=== PATIENT | female | born 1945 | race Asian ===

== ENCOUNTER 2018-04-03 13:31 | Emergency (ER) | payer OTHER ==
[2018-04-03 14:06] VITALS: BP 178/74; PULSE 78; TEMP 98; BMI 30.2
--- NOTE | 2018-04-03 14:38 | PDOC ---
History of Present Illness - General Chief Complaint: Injury Stated Complaint: FALL Time Seen by Provider: 04/03/18 14:03 History Source: Patient, Family Exam Limitations: No Limitations - History of Present Illness Initial Comments: 04/03/18 14:38 Patient slipped and fell in bathtub 2 days ago landing on her left hip and striking the right rib cage on edge of tub. Was seen by her doctor yesterday who wanted her to obtain x-rays and wrote prescriptions for outpatient studies but patient has persistent or worsening pain. states is difficult to take a deep breath due to the pain in her chest wall but does not have a cough or any shortness of breath. Denies fever, denies any dysuria or bleeding in urine, Occurred: reports: other (2 days ago) Severity: reports: moderate Method of Injury: Yes: direct blow, fall Modifying Factors: improves with: None Loss of Consciousness: no loss of consciousness Associated Symptoms (Fall): denies symptoms Past History - Travel Traveled outside of the country in the last 30 days: No Close contact w/someone who was outside of country & ill: No - Past Medical History Allergies/Adverse Reactions: Allergies Allergy/AdvReac Type Severity Reaction Status Date / Time Penicillins Allergy Severe Difficulty Verified 04/03/18 14:00 Breathing Home Medications: Ambulatory Orders Acetaminophen W/ Codeine #3 [Tylenol # 3] 1 combo PO Q4H PRN #10 tablet MDD 4 Insulin Lispro [Humalog] 100 unit SQ ASDIR 04/03/18 Nateglinide [Starlix (Nf)] 60 mg PO TID 04/03/18 Oxycodone HCl/Acetaminophen [Percocet 5-325 mg Tablet] 1 - 2 tab PO Q4H Cancer: Yes (GIST) COPD: No Diabetes: Yes HTN: Yes - Surgical History Abdominal Surgery: Yes (abd tumor removed) - Immunization History Immunization Up to Date: Yes - Suicide/Smoking/Psychosocial Hx Smoking History: Never smoked Hx Alcohol Use: No Drug/Substance Use Hx: No Review of Systems - Review of Systems Able to Perform ROS?: Yes Is the patient limited Bengali proficient: Yes Constitutional: Yes: Symptoms Reported, See HPI HEENTM: Yes: See HPI. No: Symptoms Reported Respiratory: Yes: Symptoms reported, See HPI. No: Cough, Orthopnea, Shortness of Breath Musculoskeletal: Yes: Symptoms Reported, See HPI, Joint Pain (left hip / pelvis) All Other Systems: Reviewed and Negative *Physical Exam - Vital Signs Last Vital Signs Temp Pulse Resp BP Pulse Ox 98.0 F 78 18 178/74 H 98 04/03/18 14:00 04/03/18 14:00 04/03/18 14:00 04/03/18 14:00 04/03/18 14:00 - Physical Exam General Appearance: Yes: Nourished, Appropriately Dressed, Apparent Distress, Mild Distress HEENT: positive: MINGO, Normal ENT Inspection, Normal Voice, TMs Normal, Pharynx Normal Neck: positive: Supple. negative: Tender, Tender lateral, Tender midline Respiratory/Chest: positive: Chest Tender (tenderness along the rib 11/18/2009 mid clavicular to mid axillary line on right side, no crepitus or step-offs, no obvious bruising or swelling noted.), Lungs Clear Gastrointestinal/Abdominal: positive: Soft. negative: Tender Musculoskeletal: positive: Normal Inspection. negative: Decreased Range of Motion (able ot supinate and forward flex with some reproduced pain to ), Vertebral Tenderness Extremity: positive: Normal Capillary Refill, Other (pelvis is stable / ambulatory). negative: Normal Range of Motion, Swelling Integumentary: positive: Normal Color, Pale Neurologic: positive: dialysis nurse II-XII NML intact, Fully Oriented, Alert, Normal Mood/ Affect, Normal Response, Motor Strength 5/5 Moderate Sedation - Procedure Monitoring Vital Signs: Procedure Monitoring Vital Signs Temperature 98.0 F 04/03/18 14:00 Pulse Rate 78 04/03/18 14:00 Respiratory Rate 18 04/03/18 14:00 Blood Pressure 178/74 H 04/03/18 14:00 O2 Sat by Pulse Oximetry (%) 98 04/03/18 14:00 Progress Note - Progress Note Progress Note: Status post fall with multiple contusions. X-rays negative for fractures or dislocations although possibility for a right rib 8 or 9. Will provide T#3 as Percocet too strong for patient. Will F/U with [facility]/ PMD *DC/Admit/Observation/Transfer Diagnosis at time of Disposition: Contusion Qualifiers: Encounter type: initial encounter Contusion area: thoracic wall Contusion of thoracic wall detail: front wall of thorax Laterality: right Qualified Code(s): S20.211A - Contusion of right front wall of thorax, initial encounter - Discharge Dispostion Disposition: HOME Condition at time of disposition: Stable Decision to Admit order: No - Referrals Referrals: Chava Bell MD [Primary Care Provider] - Navin Sanches MD [Staff Physician] - - Patient Instructions Printed Discharge Instructions: DI for Contusion Additional Instructions: Rest, ice to area on and off for 15 minutes 4-6 times a day Avoid heavy lifting or exercise until pain and swelling is resolved or until further directed Keep area highly elevated to reduce swelling Use splints/Norris wrap as directed Followup with orthopedist in one to 2 days if not improving, if significantly improved may wait one week for followup with orthopedist May use ibuprofen 2-200 mg tablets every 6 hours as needed for pain - Post Discharge Activity Forms/Work/School Notes: Back to Work
[2018-04-03] MEDS ORDERED: ACETAMINOPHEN 500 MG TABLET (FP) ONE (14:59)
== END 2018-04-03 15:53 | disposition home or self-care (01) ==
LOC: JERFT 13:31
DX: S20.211A Contusion of right front wall of thorax, initial encounter (principal); W18.2XXA Fall in (into) shower or empty bathtub, initial encounter; Y93.E1 Activity, personal bathing and showering; Y92.012 Bathroom of single-family (private) house as the place of occurrence of the external cause; Y99.8 Other external cause status
CPT/HCPCS: 71101-TC-RT-FY; 73523-TC-FY; 99281-25

== ENCOUNTER 2021-10-29 04:35 | Day surgery (SDC) | payer OTHER ==
[2021-10-27 13:57] VITALS: BMI 30.2
[2021-10-29] MEDS ORDERED: MIDAZOLAM HCL 2 MG/2 ML SINGLE DOSE VIAL ONE (10:22)
[2021-10-29] MEDS ORDERED: MIDAZOLAM HCL 2 MG/2 ML SINGLE DOSE VIAL IVPUSH ONE ×2 (10:55→11:23)
[2021-10-29] MEDS ORDERED: SODIUM CHLORIDE 500 ML IV ONE (10:55)
[2021-10-29] MEDS ORDERED: ONDANSETRON 4 MG/2 ML VIAL ONE (11:45)
[2021-10-29] MEDS ORDERED: ONDANSETRON 4 MG/2 ML VIAL IVPUSH ONE (11:48)
[2021-10-29] MEDS ORDERED: ACETAMINOPHEN INJECTION 100 ML IVPB ONE (12:12)
[2021-10-29] MEDS ORDERED: ACETAMINOPHEN 1000 MG/100 ML BAG IVPB ONE (12:15)
[2021-10-29 15:04] VITALS: PULSE 64
[2021-10-29 15:08] VITALS: BP 137/52; TEMP 97.8
== END 2021-10-29 14:45 | disposition home or self-care (01) ==
LOC: JRADIR 04:35
PROVIDERS: ATTEND Obstetrics & Gynecology Gynecologic Oncology
PROC: BW2GZZZ Computerized Tomography (CT Scan) of Pelvic Region (ICD-10-PCS; principal; 2021-10-29)
PROC: 0JB83ZX Excision of Abdomen Subcutaneous Tissue and Fascia, Percutaneous Approach, Diagnostic (ICD-10-PCS; 2021-10-29)
DX: C49.A0 Gastrointestinal stromal tumor, unspecified site (principal)
CPT/HCPCS: 36415; 49180; 77012-TC; 85025; 85610; 88305-TC; 88341-TC; 88342-TC; C9803-CS; U0003; U0005

== ENCOUNTER 2022-04-02 10:43 | Inpatient (IN) | payer OTHER ==
[2022-04-02 13:15] LABS: BASO % 1.4 % (0-2.0); EOS % 4.6 % (0-4.5); HEMATOCRIT 23.4 % (32.4-45.2); HEMOGLOBIN 7.5 GM/dL (10.7-15.3); LYMPH % 7.8 % (8-40); MCH 29.5 pg (25.7-33.7); MCHC 32.2 g/dl (32.0-36.0); MEAN CELL VOLUME 91.7 fl (80-96); MEAN PLT VOLUME 7.2 fl (7.5-11.1); MONO % 9.2 % (3.8-10.2); PLATELET COUNT 208 10^3/uL (134-434); RBC 2.55 M/mm3 (3.60-5.2); RDW 15.3 % (11.6-15.6); WHITE BLOOD COUNT 4.1 K/mm3 (4.0-10.0)
[2022-04-02 13:19] LABS: EPI CELLS 3 /uL (0-25.1); HYALINE CASTS 0 /uL (0-3.1); PH,URINE 5.5 (5.0-8.0); URINE APPEARANCE CLEAR; URINE BACTERIA 4 /uL (0-1359); URINE BILIRUBIN NEGATIVE (NEGATIVE); URINE COLOR YELLOW; URINE GLUCOSE (UA) NEGATIVE (NEGATIVE); URINE KETONE NEGATIVE (NEGATIVE); URINE LEUK ESTERASE NEGATIVE (NEGATIVE); URINE NITRITE NEGATIVE (NEGATIVE); URINE PROTEIN 1+ (NEGATIVE); URINE RBC 6 /uL (0-23.9); URINE UROBILINOGEN 0.2 mg/dL (0.2-1.0); URINE WBC 5 /uL (0-25.8)
[2022-04-02 13:45] LABS: CALCIUM 9.4 mg/dL (8.5-10.1)
[2022-04-02 13:46] LABS: ALBUMIN 3.2 g/dl (3.4-5.0); BLOOD UREA NITROGEN 60.3 mg/dL (7-18)
[2022-04-02 13:47] LABS: MAGNESIUM 2.1 mg/dL (1.8-2.4)
[2022-04-02 13:48] LABS: CREATININE 3.6 mg/dL (0.55-1.3)
[2022-04-02 13:49] LABS: PHOSPHOROUS 3.1 mg/dL (2.5-4.9)
[2022-04-02 13:50] LABS: TOT PROT 6.8 g/dl (6.4-8.2)
[2022-04-02 13:51] LABS: BILIRUBIN,TOTAL 0.8 mg/dL (0.2-1)
[2022-04-02 13:54] LABS: N-TERMINAL BNP 2959.9 pg/ml (5-450)
[2022-04-02 15:34] LABS: BILIRUBIN,DIRECT 0.6 mg/dL (0.0-0.2)
[2022-04-02 17:06] LABS: INR 1.19 (0.83-1.09); PROTHROMBIN TIME (PATIENT) 13.7 SEC (9.7-13.0)
[2022-04-02 17:09] LABS: ACTIVATED PTT 31.6 SECONDS (25.2-36.5)
[2022-04-02 17:26] LABS: CALCIUM 9.4 mg/dL (8.5-10.1)
[2022-04-02 17:27] LABS: BLOOD UREA NITROGEN 58.8 mg/dL (7-18)
[2022-04-02 17:30] LABS: CREATININE 3.6 mg/dL (0.55-1.3)
[2022-04-02 17:31] LABS: TOT PROT 6.6 g/dl (6.4-8.2)
[2022-04-02] MEDS ORDERED: ACETAMINOPHEN 325 MG TABLET (FP) PO ONE (18:50)
[2022-04-02] MEDS ORDERED: PANTOPRAZOLE SOD 40 MG SUSPENSION PACKET PO ONE (18:50)
[2022-04-02] MEDS ORDERED: ACETAMINOPHEN 325 MG TABLET (FP) ONE (21:08)
[2022-04-02] MEDS ORDERED: INSULIN (LEVEMIR) 100 UNITS/ML UNITS SQ SCH (22:00)
[2022-04-03 00:26] VITALS: RESP 18
[2022-04-03 00:47] VITALS: TEMP 98.9
[2022-04-03] MEDS ORDERED: PANTOPRAZOLE 40 MG TABLET PO ONE (04:34)
[2022-04-03] MEDS ORDERED: SPIRONOLACTONE 25 MG TABLET ONE (08:00)
[2022-04-03] MEDS ORDERED: SPIRONOLACTONE 25 MG TABLET PO SCH (10:00)
[2022-04-03] MEDS ORDERED: TORSEMIDE 20 MG TABLET (FP) PO SCH (11:00)
[2022-04-03] MEDS ORDERED: SODIUM BICARBONATE 325 MG TABLET PO SCH (11:15)
[2022-04-03 12:07] VITALS: BP 157/68; PULSE 77; BMI 34.4
[2022-04-03 12:50] LABS: BASO % 1.4 % (0-2.0); EOS % 5.3 % (0-4.5); LYMPH % 8.3 % (8-40); MCH 28.8 pg (25.7-33.7); MCHC 33.3 g/dl (32.0-36.0); MEAN CELL VOLUME 86.5 fl (80-96); MEAN PLT VOLUME 6.5 fl (7.5-11.1); MONO % 11.9 % (3.8-10.2); NEUT % 73.1 % (42.8-82.8); PLATELET COUNT 208 10^3/uL (134-434); RBC 2.77 M/mm3 (3.60-5.2); RDW 19.5 % (11.6-15.6); WHITE BLOOD COUNT 5.6 K/mm3 (4.0-10.0)
[2022-04-03 13:24] LABS: CREATININE 3.6 mg/dL (0.55-1.3)
== END 2022-04-03 15:52 | disposition home or self-care (01) | DRG 683 ==
LOC: JER 10:43 → JERBED 11:57 → J4W 04-03 09:51
PROVIDERS: ADMIT Family Medicine; ATTEND Family Medicine
PROC: 30233N1 Transfusion of Nonautologous Red Blood Cells into Peripheral Vein, Percutaneous Approach (ICD-10-PCS; principal; 2022-04-02)
DX: I12.9 Hypertensive chronic kidney disease with stage 1 through stage 4 chronic kidney disease, or unspecified chronic kidney disease (principal); C49.A0 Gastrointestinal stromal tumor, unspecified site; C78.7 Secondary malignant neoplasm of liver and intrahepatic bile duct; R18.8 Other ascites; N18.9 Chronic kidney disease, unspecified; D63.1 Anemia in chronic kidney disease; E11.9 Type 2 diabetes mellitus without complications
CPT/HCPCS: 0241U-QW; 36415; 36430; 71046-TC-FY; 76775-TC; 80048; 80053; 81003; 82248; 82728; 82962; 83010; 83540; 83550; 83615; 83735; 83880; 84100; 84484; 85025; 85045; 85610; 85730; 86850; 86900; 86901; 86922; 87086; 93005; 93010; 99285-25; P9058

== ENCOUNTER 2022-05-10 09:26 | Inpatient (IN) | payer OTHER ==
[2022-05-10 09:30] VITALS: BMI 33.3
[2022-05-10 12:19] LABS: EOS % 3.8 % (0-4.5); HEMATOCRIT 21.4 % (32.4-45.2); HEMOGLOBIN 7.1 GM/dL (10.7-15.3); LYMPH % 7.1 % (8-40); MCH 29.2 pg (25.7-33.7); MCHC 33.1 g/dl (32.0-36.0); MEAN CELL VOLUME 88.4 fl (80-96); MEAN PLT VOLUME 7.9 fl (7.5-11.1); MONO % 8.8 % (3.8-10.2); NEUT % 79.3 % (42.8-82.8); PLATELET COUNT 271 10^3/uL (134-434); RBC 2.41 M/mm3 (3.60-5.2); RDW 16.8 % (11.6-15.6); WHITE BLOOD COUNT 5.5 K/mm3 (4.0-10.0)
[2022-05-10 12:24] LABS: INR 1.32 (0.83-1.09); PROTHROMBIN TIME (PATIENT) 15.2 SEC (9.7-13.0)
[2022-05-10 12:27] LABS: ACTIVATED PTT 31.7 SECONDS (25.2-36.5)
[2022-05-10 13:12] LABS: CALCIUM 8.7 mg/dL (8.5-10.1)
[2022-05-10 13:13] LABS: BLOOD UREA NITROGEN 89.4 mg/dL (7-18); MAGNESIUM 1.5 mg/dL (1.8-2.4)
[2022-05-10 13:15] LABS: CREATININE 5.6 mg/dL (0.55-1.3); PHOSPHOROUS 4.3 mg/dL (2.5-4.9)
[2022-05-10 13:18] LABS: BILIRUBIN,TOTAL 1.3 mg/dL (0.2-1); TOT PROT 6.7 g/dl (6.4-8.2)
[2022-05-10] MEDS ORDERED: ZOLPIDEM TARTRATE 5 MG TABLET PO PRN (15:07)
[2022-05-10] MEDS ORDERED: ACETAMINOPHEN 325 MG TABLET (FP) PO PRN (21:48)
[2022-05-10] MEDS: INSULIN (LEVEMIR) 100 UNITS/ML UNITS SQ SCH ×2 (21:50→22:20)
[2022-05-11] MEDS ORDERED: INSULIN (NOVOLOG) ASPART 100 UNITS/ML 10ML VIAL ONE (07:39)
[2022-05-11] MEDS ORDERED: INSULIN (LEVEMIR) 100 UNITS/ML UNITS SQ ONE (07:39)
[2022-05-11 09:42] LABS: EPI CELLS 2 /uL (0-25.1); HYALINE CASTS 1 /uL (0-3.1); PH,URINE 5.5 (5.0-8.0); URINE APPEARANCE CLEAR; URINE BACTERIA 5 /uL (0-1359); URINE BILIRUBIN NEGATIVE (NEGATIVE); URINE COLOR YELLOW; URINE GLUCOSE (UA) NEGATIVE (NEGATIVE); URINE KETONE NEGATIVE (NEGATIVE); URINE LEUK ESTERASE NEGATIVE (NEGATIVE); URINE NITRITE NEGATIVE (NEGATIVE); URINE PROTEIN 1+ (NEGATIVE); URINE RBC 4 /uL (0-23.9); URINE UROBILINOGEN 0.2 mg/dL (0.2-1.0); URINE WBC 8 /uL (0-25.8)
[2022-05-11 09:49] LABS: BASO % 1.4 % (0-2.0); EOS % 6.4 % (0-4.5); HEMATOCRIT 22.4 % (32.4-45.2); HEMOGLOBIN 7.5 GM/dL (10.7-15.3); LYMPH % 10.1 % (8-40); MCH 29.6 pg (25.7-33.7); MCHC 33.5 g/dl (32.0-36.0); MEAN CELL VOLUME 88.4 fl (80-96); MEAN PLT VOLUME 7.5 fl (7.5-11.1); MONO % 11.7 % (3.8-10.2); NEUT % 70.4 % (42.8-82.8); PLATELET COUNT 338 10^3/uL (134-434); RBC 2.53 M/mm3 (3.60-5.2); RDW 16.7 % (11.6-15.6); WHITE BLOOD COUNT 6.9 K/mm3 (4.0-10.0)
[2022-05-11] MEDS: SPIRONOLACTONE 25 MG TABLET PO SCH (10:04)
[2022-05-11] MEDS: PANTOPRAZOLE SODIUM 40 MG VIAL IVPUSH SCH (10:05)
[2022-05-11 10:24] LABS: ALBUMIN 2.9 g/dl (3.4-5.0)
[2022-05-11 10:25] LABS: BLOOD UREA NITROGEN 86.8 mg/dL (7-18); CALCIUM 8.9 mg/dL (8.5-10.1); CREATININE 5.4 mg/dL (0.55-1.3)
[2022-05-11 10:26] LABS: BILIRUBIN,TOTAL 1.4 mg/dL (0.2-1); TOT PROT 6.6 g/dl (6.4-8.2)
[2022-05-11] MEDS ORDERED: FUROSEMIDE 100 MG/10 ML INJECTABLE VIAL IVPB ONE (12:10)
[2022-05-11] MEDS ORDERED: MAGNESIUM SULF 50% (8.12 MEQ/2 ML-1 GM VIAL) IVPB ONE (16:32)
[2022-05-11] MEDS: INSULIN (LEVEMIR) 100 UNITS/ML UNITS SQ SCH (21:34)
[2022-05-12 10:23] LABS: BASO % 1.4 % (0-2.0); EOS % 6.1 % (0-4.5); HEMATOCRIT 22.6 % (32.4-45.2); HEMOGLOBIN 7.4 GM/dL (10.7-15.3); LYMPH % 7.4 % (8-40); MCH 29.3 pg (25.7-33.7); MCHC 32.9 g/dl (32.0-36.0); MEAN CELL VOLUME 88.8 fl (80-96); MEAN PLT VOLUME 7.3 fl (7.5-11.1); MONO % 13.1 % (3.8-10.2); PLATELET COUNT 246 10^3/uL (134-434); RBC 2.54 M/mm3 (3.60-5.2); RDW 16.7 % (11.6-15.6); WHITE BLOOD COUNT 5.5 K/mm3 (4.0-10.0)
[2022-05-12] MEDS: SPIRONOLACTONE 25 MG TABLET PO SCH (10:31)
[2022-05-12 11:00] LABS: CALCIUM 9.1 mg/dL (8.5-10.1)
[2022-05-12] MEDS: PANTOPRAZOLE SODIUM 40 MG VIAL IVPUSH SCH (11:00)
[2022-05-12] MEDS ORDERED: FUROSEMIDE 100 MG/10 ML INJECTABLE VIAL IVPB SCH (11:00)
[2022-05-12 11:01] LABS: BLOOD UREA NITROGEN 86.8 mg/dL (7-18)
[2022-05-12] MEDS ORDERED: FUROSEMIDE 40 MG/4 ML INJECTABLE VIAL IVPB SCH (11:02)
[2022-05-12 11:04] LABS: CREATININE 5.2 mg/dL (0.55-1.3)
[2022-05-12] MEDS ORDERED: PROMETHAZINE HCL 25 MG/1 ML VIAL IVPB PRN ×2 (14:07→18:57)
[2022-05-12] MEDS ORDERED: ONDANSETRON 4 MG/2 ML VIAL IVPUSH PRN ×2 (14:07→18:57)
[2022-05-12] MEDS ORDERED: SODIUM CHLORIDE 1,000 ML IV SCH (14:15)
[2022-05-12] MEDS ORDERED: LIDOCAINE HCL 1%, 10 MG/ML (20ML VIAL) ONE (14:37)
[2022-05-12] MEDS ORDERED: HEPARIN NA (PORCINE) 5,000 UNITS/ML 1ML VIAL ONE (14:37)
[2022-05-12] MEDS ORDERED: CLINDAMYCIN 600 MG PREMIX BAG IVPB ONE (17:30)
[2022-05-12] MEDS ORDERED: LIDOCAINE HCL 1%, 10 MG/ML (20ML VIAL) NR ONE (17:36)
[2022-05-12 17:46] LABS: BF WBC & OTHER NUCLEATED CELLS 280 /mm3
[2022-05-12] MEDS ORDERED: ACETAMINOPHEN 325 MG TABLET (FP) PO PRN (18:57)
[2022-05-12] MEDS ORDERED: ZOLPIDEM TARTRATE 5 MG TABLET PO PRN (18:57)
[2022-05-12 19:17] LABS: BODY FLUID MACROPHAGES 52 %; BODY FLUID MESOTHELIAL 10 %; BODY FLUID MONOCYTE 4 %; BODYL FLD EOSINOPHIL 1 %
[2022-05-12] MEDS ORDERED: ONDANSETRON 4 MG/2 ML VIAL ONE (19:33)
[2022-05-12] MEDS ORDERED: ONDANSETRON 4 MG/2 ML VIAL IVPUSH ONE (19:35)
[2022-05-12] MEDS: INSULIN (LEVEMIR) 100 UNITS/ML UNITS SQ SCH (21:44)
[2022-05-12] MEDS: SODIUM CHLORIDE 1,000 ML IV SCH (21:45)
[2022-05-13] MEDS: FUROSEMIDE 40 MG/4 ML INJECTABLE VIAL IVPB SCH (09:54)
[2022-05-13] MEDS: SPIRONOLACTONE 25 MG TABLET PO SCH (09:58)
[2022-05-13] MEDS: PANTOPRAZOLE SODIUM 40 MG VIAL IVPUSH SCH (09:59)
[2022-05-13] MEDS ORDERED: SODIUM CHLORIDE 250 ML IV PRN (10:42)
[2022-05-13 12:11] LABS: EOS % 1.8 % (0-4.5); HEMATOCRIT 22.1 % (32.4-45.2); HEMOGLOBIN 7.3 GM/dL (10.7-15.3); LYMPH % 8.8 % (8-40); MCH 29.2 pg (25.7-33.7); MEAN CELL VOLUME 88.4 fl (80-96); MEAN PLT VOLUME 7.4 fl (7.5-11.1); MONO % 9.1 % (3.8-10.2); NEUT % 79.3 % (42.8-82.8); PLATELET COUNT 267 10^3/uL (134-434); RBC 2.49 M/mm3 (3.60-5.2); RDW 16.9 % (11.6-15.6); WHITE BLOOD COUNT 5.6 K/mm3 (4.0-10.0)
[2022-05-13 12:31] LABS: ALBUMIN 2.6 g/dl (3.4-5.0)
[2022-05-13 12:32] LABS: BLOOD UREA NITROGEN 85.2 mg/dL (7-18); CALCIUM 8.6 mg/dL (8.5-10.1)
[2022-05-13 12:35] LABS: TOT PROT 6.1 g/dl (6.4-8.2)
[2022-05-13 12:36] LABS: BILIRUBIN,TOTAL 1.2 mg/dL (0.2-1)
[2022-05-13 18:03] LABS: CALCIUM 8.1 mg/dL (8.5-10.1)
[2022-05-13 18:04] LABS: ALBUMIN 2.5 g/dl (3.4-5.0); BLOOD UREA NITROGEN 68.1 mg/dL (7-18)
[2022-05-13 18:07] LABS: CREATININE 4.3 mg/dL (0.55-1.3)
[2022-05-13 18:08] LABS: TOT PROT 5.6 g/dl (6.4-8.2)
[2022-05-13] MEDS: SODIUM CHLORIDE 1,000 ML IV SCH (19:53)
[2022-05-13] MEDS: INSULIN (LEVEMIR) 100 UNITS/ML UNITS SQ SCH (21:09)
[2022-05-14 08:52] LABS: BASO % 0.6 % (0-2.0); HEMATOCRIT 20.3 % (32.4-45.2); LYMPH % 11.7 % (8-40); MCH 29.4 pg (25.7-33.7); MCHC 33.6 g/dl (32.0-36.0); MEAN CELL VOLUME 87.7 fl (80-96); MEAN PLT VOLUME 7.2 fl (7.5-11.1); MONO % 15.4 % (3.8-10.2); NEUT % 69.3 % (42.8-82.8); PLATELET COUNT 263 10^3/uL (134-434); RBC 2.31 M/mm3 (3.60-5.2); RDW 16.5 % (11.6-15.6); RETICULOCYTES 4.96 % (0.5-1.5); WHITE BLOOD COUNT 7.5 K/mm3 (4.0-10.0)
[2022-05-14] MEDS: PANTOPRAZOLE SODIUM 40 MG VIAL IVPUSH SCH ×2 (08:53→09:09)
[2022-05-14] MEDS: DEXTROSE 5%-0.45% SALINE 1,000 ML IV SCH (09:00)
[2022-05-14] MEDS: POLYETHYLENE GLYCOL (HEALTHYLAX) 3350 17 GM PACKET PO SCH (09:04)
[2022-05-14] MEDS: FUROSEMIDE 40 MG/4 ML INJECTABLE VIAL IVPB SCH (09:06)
[2022-05-14] MEDS: SPIRONOLACTONE 25 MG TABLET PO SCH (09:06)
[2022-05-14 09:09] LABS: HEMOGLOBIN 6.8 GM/dL (10.7-15.3)
[2022-05-14 09:17] LABS: CALCIUM 8.4 mg/dL (8.5-10.1)
[2022-05-14 09:18] LABS: BLOOD UREA NITROGEN 56.6 mg/dL (7-18)
[2022-05-14] MEDS ORDERED: DEXTROSE 50%-WATER 25 GM/50 ML DISP.SYRIN IVPUSH ONE (12:56)
[2022-05-14 16:08] LABS: BODY FLUID ALBUMIN 1.7 g/dL (Not Estab.)
[2022-05-14] MEDS: INSULIN (LEVEMIR) 100 UNITS/ML UNITS SQ SCH (21:20)
[2022-05-15] MEDS: PANTOPRAZOLE SODIUM 40 MG VIAL IVPUSH SCH (09:46)
[2022-05-15] MEDS: FUROSEMIDE 40 MG/4 ML INJECTABLE VIAL IVPB SCH (09:46)
[2022-05-15] MEDS: POLYETHYLENE GLYCOL (HEALTHYLAX) 3350 17 GM PACKET PO SCH ×2 (09:46→22:48)
[2022-05-15] MEDS: DEXTROSE 5%-0.45% SALINE 1,000 ML IV SCH (09:54)
[2022-05-15 13:02] LABS: BASO % 0.9 % (0-2.0); EOS % 4.4 % (0-4.5); HEMATOCRIT 27.5 % (32.4-45.2); HEMOGLOBIN 9.3 GM/dL (10.7-15.3); LYMPH % 6.2 % (8-40); MCH 30.1 pg (25.7-33.7); MEAN CELL VOLUME 88.5 fl (80-96); MEAN PLT VOLUME 6.9 fl (7.5-11.1); MONO % 12.4 % (3.8-10.2); NEUT % 76.1 % (42.8-82.8); PLATELET COUNT 165 10^3/uL (134-434); RBC 3.11 M/mm3 (3.60-5.2); RDW 15.9 % (11.6-15.6); WHITE BLOOD COUNT 4.7 K/mm3 (4.0-10.0)
[2022-05-15 13:25] LABS: CALCIUM 8.6 mg/dL (8.5-10.1)
[2022-05-15 13:26] LABS: BLOOD UREA NITROGEN 51.7 mg/dL (7-18)
[2022-05-15 13:29] LABS: CREATININE 3.8 mg/dL (0.55-1.3)
[2022-05-15] MEDS ORDERED: SODIUM CHLORIDE 250 ML IV PRN (15:06)
[2022-05-15] MEDS ORDERED: MIDAZOLAM HCL 2 MG/2 ML SINGLE DOSE VIAL ONE (17:12)
[2022-05-15] MEDS ORDERED: PROPOFOL 40 ML ONE (17:12)
[2022-05-15] MEDS ORDERED: ceFAZolin SODIUM 1 GM VIAL IVPB ONE (17:55)
[2022-05-15] MEDS ORDERED: DEXAMETHASONE SOD PHOSPHATE 4 MG/1 ML VIAL ONE (17:59)
[2022-05-15] MEDS ORDERED: ONDANSETRON 4 MG/2 ML VIAL ONE (17:59)
[2022-05-15] MEDS ORDERED: ceFAZolin SODIUM 1 GM VIAL ONE (17:59)
[2022-05-15] MEDS ORDERED: LIDOCAINE HCL 1%, 10 MG/ML (20ML VIAL) NR ONE (18:07)
[2022-05-15] MEDS ORDERED: HEPARIN NA (PORCINE) 5,000 UNITS/ML 1ML VIAL SQ ONE (18:08)
[2022-05-15] MEDS ORDERED: POVIDONE-IODINE OINTMENT 10% - 28.4 GM TUBE ONE (18:51)
[2022-05-15] MEDS ORDERED: DEXTROSE 50%-WATER 25 GM/50 ML DISP.SYRIN IVPUSH ONE (19:14)
[2022-05-15] MEDS ORDERED: DEXTROSE 5%-0.45% SALINE 1,000 ML IV SCH (19:14)
[2022-05-15] MEDS ORDERED: INSULIN (LEVEMIR) 100 UNITS/ML UNITS SQ SCH (22:00)
[2022-05-15] MEDS ORDERED: POLYETHYLENE GLYCOL (HEALTHYLAX) 3350 17 GM PACKET PO SCH ×2 (22:00→23:00)
[2022-05-16] MEDS ORDERED: SODIUM CHLORIDE 250 ML IV PRN (09:31)
[2022-05-16] MEDS ORDERED: EPOETIN ALFA-EPBX 10,000 UNIT/ML VIAL IVPUSH ONE (10:30)
[2022-05-16 10:31] LABS: HEMATOCRIT 26.9 % (32.4-45.2); MCH 29.9 pg (25.7-33.7); MCHC 33.4 g/dl (32.0-36.0); MEAN CELL VOLUME 89.6 fl (80-96); MEAN PLT VOLUME 7.7 fl (7.5-11.1); PLATELET COUNT 167 10^3/uL (134-434); RDW 15.9 % (11.6-15.6); WHITE BLOOD COUNT 6.4 K/mm3 (4.0-10.0)
[2022-05-16 11:08] LABS: CALCIUM 8.6 mg/dL (8.5-10.1)
[2022-05-16 11:09] LABS: BLOOD UREA NITROGEN 59.2 mg/dL (7-18)
[2022-05-16 11:12] LABS: CREATININE 3.8 mg/dL (0.55-1.3)
[2022-05-16 11:19] LABS: ANISOCYTOSIS 0; HELMET CELLS 0; HOWELL-JOLLY BODIES 0; MACROCYTOSIS 0; OVALOCYTE 0; ROULEAU 0; SICKELED CELLS 0; TARGET CELLS 0; TEAR DROP CELLS 0; TOXIC GRANULATION 0
[2022-05-16] MEDS: PANTOPRAZOLE SODIUM 40 MG VIAL IVPUSH SCH (12:58)
[2022-05-16] MEDS: POLYETHYLENE GLYCOL (HEALTHYLAX) 3350 17 GM PACKET PO SCH ×2 (12:59→21:22)
[2022-05-16] MEDS ORDERED: EPOETIN ALFA-EPBX 10,000 UNIT/ML VIAL SQ ONE (15:06)
[2022-05-17] MEDS: ACETAMINOPHEN 325 MG TABLET (FP) PO PRN ×2 (09:31→21:29)
[2022-05-17] MEDS: POLYETHYLENE GLYCOL (HEALTHYLAX) 3350 17 GM PACKET PO SCH ×2 (09:33→21:30)
[2022-05-17] MEDS: PANTOPRAZOLE SODIUM 40 MG VIAL IVPUSH SCH (09:33)
[2022-05-17] MEDS ORDERED: cloNIDine-TTS 0.3 MG /24 HRS PATCH.TDWK TD SCH ×3 (10:00)
[2022-05-17] MEDS ORDERED: TORSEMIDE 20 MG TABLET (FP) PO SCH (12:45)
[2022-05-17 14:24] VITALS: RESP 18
[2022-05-18 07:43] VITALS: TEMP 97.4
[2022-05-18] MEDS ORDERED: SODIUM CHLORIDE 250 ML IV PRN (09:26)
[2022-05-18] MEDS ORDERED: HEPARIN NA (PORCINE) 5,000 UNITS/ML 1ML VIAL IVPUSH ONE (10:00)
[2022-05-18] MEDS ORDERED: EPOETIN ALFA-EPBX 10,000 UNIT/ML VIAL IVPUSH ONE (10:00)
[2022-05-18 11:04] LABS: HEMATOCRIT 24.9 % (32.4-45.2); HEMOGLOBIN 8.4 GM/dL (10.7-15.3); MCH 30.3 pg (25.7-33.7); MCHC 33.6 g/dl (32.0-36.0); MEAN CELL VOLUME 90.3 fl (80-96); PLATELET COUNT 151 10^3/uL (134-434); RBC 2.75 M/mm3 (3.60-5.2); RDW 16.6 % (11.6-15.6); WHITE BLOOD COUNT 6.1 K/mm3 (4.0-10.0)
[2022-05-18 11:18] LABS: ALBUMIN 2.3 g/dl (3.4-5.0); BLOOD UREA NITROGEN 46.5 mg/dL (7-18); CALCIUM 7.9 mg/dL (8.5-10.1)
[2022-05-18 11:21] LABS: CREATININE 3.4 mg/dL (0.55-1.3)
[2022-05-18 11:23] LABS: BILIRUBIN,TOTAL 1.4 mg/dL (0.2-1); TOT PROT 5.4 g/dl (6.4-8.2)
[2022-05-18 12:31] VITALS: BP 120/52; PULSE 74
[2022-05-18] MEDS: POLYETHYLENE GLYCOL (HEALTHYLAX) 3350 17 GM PACKET PO SCH (13:44)
[2022-05-19] MEDS ORDERED: PANTOPRAZOLE 40 MG TABLET PO SCH (10:00)
== END 2022-05-18 15:56 | disposition home or self-care (01) | DRG 673 ==
LOC: JER 09:26 → JERBED 11:40 → J6S 16:01
PROVIDERS: ADMIT Family Medicine; ATTEND Family Medicine
PROC: 05HM33Z Insertion of Infusion Device into Right Internal Jugular Vein, Percutaneous Approach (ICD-10-PCS; 2022-05-12)
PROC: B513ZZA Fluoroscopy of Right Jugular Veins, Guidance (ICD-10-PCS; 2022-05-12)
PROC: 0W9G3ZX Drainage of Peritoneal Cavity, Percutaneous Approach, Diagnostic (ICD-10-PCS; 2022-05-12)
PROC: 5A1D70Z Performance of Urinary Filtration, Intermittent, Less than 6 Hours Per Day (ICD-10-PCS; 2022-05-13)
PROC: 03180ZD Bypass Left Brachial Artery to Upper Arm Vein, Open Approach (ICD-10-PCS; principal; 2022-05-15 15:30)
PROC: 5A1D70Z Performance of Urinary Filtration, Intermittent, Less than 6 Hours Per Day (ICD-10-PCS; 2022-05-16)
PROC: 5A1D70Z Performance of Urinary Filtration, Intermittent, Less than 6 Hours Per Day (ICD-10-PCS; 2022-05-18)
DX: I12.0 Hypertensive chronic kidney disease with stage 5 chronic kidney disease or end stage renal disease (principal); N18.6 End stage renal disease; R18.8 Other ascites; N17.9 Acute kidney failure, unspecified; C49.A9 Gastrointestinal stromal tumor of other sites; C78.6 Secondary malignant neoplasm of retroperitoneum and peritoneum; C78.7 Secondary malignant neoplasm of liver and intrahepatic bile duct; M54.59 Other low back pain; D64.9 Anemia, unspecified; K59.00 Constipation, unspecified; E66.9 Obesity, unspecified; Z68.30 Body mass index [BMI] 30.0-30.9, adult; E87.70 Fluid overload, unspecified; E11.22 Type 2 diabetes mellitus with diabetic chronic kidney disease; Z99.2 Dependence on renal dialysis
CPT/HCPCS: 0241U-QW; 36415; 36430; 71045-TC-FY; 71046-TC-FY; 74176-TC; 76000-TC-FY; 76942-TC; 80048; 80053; 81003; 82042; 82150; 82465; 82728; 82962; 83540; 83550; 83615; 83735; 83986; 84100; 84157; 84478; 84484; 85025; 85027; 85045; 85610; 85730; 86803; 86850; 86900; 86901; 86922; 87070; 87075; 87086; 87102; 87116; 87205; 87206; 87210; 87340; 88108; 88305-TC; 93005; 93010; 93985; 94760; 99285-25; C1750; J1644; P9058; Q5106

== ENCOUNTER 2022-06-29 10:47 | Emergency (ER) | payer OTHER ==
[2022-06-29 11:16] VITALS: BP 134/43; RESP 16; TEMP 97.8; BMI 31.5
[2022-06-29 13:19] LABS: BASO % 0.3 % (0-2.0); EOS % 0.3 % (0-4.5); HEMATOCRIT 33.7 % (32.4-45.2); HEMOGLOBIN 11.2 GM/dL (10.7-15.3); LYMPH % 6.8 % (8-40); MCH 31.9 pg (25.7-33.7); MCHC 33.3 g/dl (32.0-36.0); MEAN CELL VOLUME 95.7 fl (80-96); MEAN PLT VOLUME 7.3 fl (7.5-11.1); MONO % 6.1 % (3.8-10.2); NEUT % 86.5 % (42.8-82.8); PLATELET COUNT 241 10^3/uL (134-434); RBC 3.53 M/mm3 (3.60-5.2); RDW 19.1 % (11.6-15.6); WHITE BLOOD COUNT 8.5 K/mm3 (4.0-10.0)
[2022-06-29 13:26] LABS: INR 1.1 (0.83-1.09); PROTHROMBIN TIME (PATIENT) 12.7 SEC (9.7-13.0)
[2022-06-29 13:29] LABS: ACTIVATED PTT 32.5 SECONDS (25.2-36.5)
[2022-06-29 13:36] LABS: CALCIUM 8.6 mg/dL (8.5-10.1)
[2022-06-29 13:37] LABS: ALBUMIN 2.3 g/dl (3.4-5.0); BLOOD UREA NITROGEN 25.2 mg/dL (7-18)
[2022-06-29 13:40] LABS: CREATININE 3.1 mg/dL (0.55-1.3)
[2022-06-29 13:41] LABS: TOT PROT 6.2 g/dl (6.4-8.2)
[2022-06-29 13:42] LABS: BILIRUBIN,TOTAL 1.2 mg/dL (0.2-1)
[2022-06-29 14:22] VITALS: PULSE 85
== END 2022-06-29 14:23 | disposition home or self-care (01) ==
LOC: JER 10:47
DX: R07.89 Other chest pain (principal)
CPT/HCPCS: 36415; 80053; 83036; 85025; 85610; 85730; 86850; 86900; 86901; 99283-25

== ENCOUNTER → 2022-06-30 | Day surgery (SDC) | payer OTHER ==
[2022-06-30 19:20] LABS: BF WBC & OTHER NUCLEATED CELLS 178 /mm3
[2022-06-30 20:38] LABS: BODY FLUID MACROPHAGES 10 %; BODY FLUID MESOTHELIAL 5 %; BODY FLUID MONOCYTE 22 %
[2022-07-02 16:09] LABS: BODY FLUID ALBUMIN 1.4 g/dL (Not Estab.)
== END | disposition home or self-care (01) ==
LOC: JRADIR 09:29
PROVIDERS: ATTEND Internal Medicine Hematology & Oncology
PROC: 0W9G3ZZ Drainage of Peritoneal Cavity, Percutaneous Approach (ICD-10-PCS; principal; 2022-06-30)
DX: R18.8 Other ascites (principal)
CPT/HCPCS: 36415; 49083; 76942-TC; 82042; 82150; 82465; 82945; 83615; 83986; 84157; 84478; 87070; 87075; 87102; 87116; 87205; 87206; 87210; 88108; 88305-TC

== ENCOUNTER 2022-07-03 10:16 | Inpatient (IN) | payer OTHER ==
[2022-07-03 13:18] LABS: VENOUS BASE EXCESS 1.9 mmol/L (-2-2); VENOUS O2 SATURATION 30.5 % (70-80); VENOUS PCO2 43.3 mmHg (38-52); VENOUS PH 7.41 (7.310-7.410)
[2022-07-03 13:19] LABS: BASO % 0.3 % (0-2.0); EOS % 0.3 % (0-4.5); HEMATOCRIT 35.4 % (32.4-45.2); HEMOGLOBIN 11.7 GM/dL (10.7-15.3); MCH 31.5 pg (25.7-33.7); MCHC 33.2 g/dl (32.0-36.0); MEAN CELL VOLUME 94.9 fl (80-96); MEAN PLT VOLUME 7.7 fl (7.5-11.1); MONO % 6.8 % (3.8-10.2); NEUT % 85.6 % (42.8-82.8); PLATELET COUNT 175 10^3/uL (134-434); RBC 3.73 M/mm3 (3.60-5.2); RDW 18.6 % (11.6-15.6); WHITE BLOOD COUNT 7.3 K/mm3 (4.0-10.0)
[2022-07-03 13:27] LABS: INR 1.14 (0.83-1.09); PROTHROMBIN TIME (PATIENT) 13.2 SEC (9.7-13.0)
[2022-07-03 13:29] LABS: ACTIVATED PTT 31.6 SECONDS (25.2-36.5)
[2022-07-03 13:44] LABS: ALBUMIN 2.2 g/dl (3.4-5.0); BLOOD UREA NITROGEN 23.5 mg/dL (7-18); CALCIUM 8.6 mg/dL (8.5-10.1)
[2022-07-03 13:49] LABS: TOT PROT 6.3 g/dl (6.4-8.2)
[2022-07-03 13:50] LABS: BILIRUBIN,TOTAL 1.2 mg/dL (0.2-1)
[2022-07-03 13:53] LABS: N-TERMINAL BNP 4933.4 pg/ml (5-450)
[2022-07-03] MEDS ORDERED: ALBUMIN HUMAN 25% 12.5 GM/50 ML VIAL IV SCH ×2 (14:30)
[2022-07-03] MEDS: ALBUMIN HUMAN 25% 12.5 GM/50 ML VIAL IV SCH ×2 (15:45→21:14)
[2022-07-03] MEDS ORDERED: valACYclovir HCL 1000 MG TABLET PO ONE (19:36)
[2022-07-03] MEDS ORDERED: valACYclovir HCL 500 MG TABLET (FP) PO ONE (21:45)
[2022-07-04] MEDS ORDERED: SODIUM CHLORIDE 250 ML IV PRN (07:34)
[2022-07-04] MEDS: ALBUMIN HUMAN 25% 12.5 GM/50 ML VIAL IV SCH ×4 (08:45→10:45)
[2022-07-04 09:33] LABS: HEMATOCRIT 29.7 % (32.4-45.2); MCH 32.5 pg (25.7-33.7); MCHC 33.7 g/dl (32.0-36.0); MEAN CELL VOLUME 96.3 fl (80-96); PLATELET COUNT 162 10^3/uL (134-434); RBC 3.08 M/mm3 (3.60-5.2); WHITE BLOOD COUNT 7.7 K/mm3 (4.0-10.0)
[2022-07-04 09:55] LABS: BLOOD UREA NITROGEN 30.6 mg/dL (7-18); CALCIUM 8.3 mg/dL (8.5-10.1)
[2022-07-04 09:59] LABS: CREATININE 3.5 mg/dL (0.55-1.3)
[2022-07-04] MEDS ORDERED: TORSEMIDE 20 MG TABLET (FP) PO SCH ×3 (10:00→14:26)
[2022-07-04] MEDS: PANTOPRAZOLE 40 MG TABLET PO SCH (13:28)
[2022-07-04 14:08] LABS: ALBUMIN 2.2 g/dl (3.4-5.0)
[2022-07-04 14:12] LABS: BILIRUBIN,TOTAL 1.1 mg/dL (0.2-1); TOT PROT 5.4 g/dl (6.4-8.2)
[2022-07-04] MEDS: INSULIN (LEVEMIR) 100 UNITS/ML UNITS SQ SCH (23:05)
[2022-07-05 08:21] LABS: EOS % 0.5 % (0-4.5); HEMATOCRIT 28.8 % (32.4-45.2); HEMOGLOBIN 9.9 GM/dL (10.7-15.3); LYMPH % 7.6 % (8-40); MCH 32.9 pg (25.7-33.7); MCHC 34.4 g/dl (32.0-36.0); MEAN CELL VOLUME 95.6 fl (80-96); MONO % 9.1 % (3.8-10.2); NEUT % 81.8 % (42.8-82.8); RBC 3.02 M/mm3 (3.60-5.2); WHITE BLOOD COUNT 8.1 K/mm3 (4.0-10.0)
[2022-07-05 08:22] LABS: PLATELET COUNT 140 10^3/uL (134-434)
[2022-07-05] MEDS: PANTOPRAZOLE 40 MG TABLET PO SCH (09:45)
[2022-07-05] MEDS: metoPROLOL SUCCINATE 25 MG TAB.SR.24H (FP) PO SCH (10:51)
[2022-07-05] MEDS ORDERED: SODIUM CHLORIDE 250 ML IV PRN (13:19)
[2022-07-05 16:28] VITALS: BMI 27.8
[2022-07-05] MEDS: INSULIN (LEVEMIR) 100 UNITS/ML UNITS SQ SCH (21:35)
[2022-07-05] MEDS: ACETAMINOPHEN 325 MG TABLET (FP) PO PRN (22:39)
[2022-07-06] MEDS ORDERED: SODIUM CHLORIDE 250 ML IV PRN (09:00)
[2022-07-06 09:54] LABS: HEMATOCRIT 30.4 % (32.4-45.2); HEMOGLOBIN 10.1 GM/dL (10.7-15.3); MCH 32.1 pg (25.7-33.7); MCHC 33.3 g/dl (32.0-36.0); MEAN CELL VOLUME 96.5 fl (80-96); MEAN PLT VOLUME 8.2 fl (7.5-11.1); PLATELET COUNT 193 10^3/uL (134-434); RBC 3.15 M/mm3 (3.60-5.2); RDW 18.8 % (11.6-15.6)
[2022-07-06 10:14] LABS: CALCIUM 8.3 mg/dL (8.5-10.1)
[2022-07-06 10:15] LABS: ALBUMIN 2.2 g/dl (3.4-5.0); BLOOD UREA NITROGEN 36.4 mg/dL (7-18)
[2022-07-06 10:17] LABS: PHOSPHOROUS 2.8 mg/dL (2.5-4.9)
[2022-07-06 10:18] LABS: CREATININE 3.9 mg/dL (0.55-1.3)
[2022-07-06 10:19] LABS: BILIRUBIN,TOTAL 1.2 mg/dL (0.2-1)
[2022-07-06] MEDS: ALBUMIN HUMAN 25% 12.5 GM/50 ML VIAL IV SCH ×4 (10:19→11:54)
[2022-07-06] MEDS: metoPROLOL SUCCINATE 25 MG TAB.SR.24H (FP) PO SCH (12:59)
[2022-07-06] MEDS: AMINO ACIDS/PROTEIN HYDROLYS 30 ML LIQUID.PKT PO SCH (13:59)
[2022-07-06] MEDS: PANTOPRAZOLE 40 MG TABLET PO SCH (14:00)
[2022-07-06] MEDS: ACETAMINOPHEN 325 MG TABLET (FP) PO PRN (20:10)
[2022-07-06] MEDS: INSULIN (LEVEMIR) 100 UNITS/ML UNITS SQ SCH (22:06)
[2022-07-07 08:57] VITALS: BP 111/60; PULSE 100; RESP 20; TEMP 97.6
[2022-07-07] MEDS: AMINO ACIDS/PROTEIN HYDROLYS 30 ML LIQUID.PKT PO SCH (09:50)
[2022-07-07] MEDS: PANTOPRAZOLE 40 MG TABLET PO SCH (09:50)
[2022-07-07] MEDS: metoPROLOL SUCCINATE 25 MG TAB.SR.24H (FP) PO SCH (09:50)
[2022-07-07] MEDS ORDERED: TORSEMIDE 100 MG TABLET PO SCH (10:00)
== END 2022-07-07 13:26 | disposition home or self-care (01) | DRG 640 ==
LOC: JER 10:16 → JERBED 14:24 → J4S 20:00
PROVIDERS: ADMIT Family Medicine; ATTEND Family Medicine
PROC: 5A1D70Z Performance of Urinary Filtration, Intermittent, Less than 6 Hours Per Day (ICD-10-PCS; principal; 2022-07-06)
DX: E87.70 Fluid overload, unspecified (principal); N18.6 End stage renal disease; C79.60 Secondary malignant neoplasm of unspecified ovary; I13.2 Hypertensive heart and chronic kidney disease with heart failure and with stage 5 chronic kidney disease, or end stage renal disease; R18.8 Other ascites; R00.0 Tachycardia, unspecified; I50.9 Heart failure, unspecified; E11.22 Type 2 diabetes mellitus with diabetic chronic kidney disease; Z99.2 Dependence on renal dialysis
CPT/HCPCS: 0241U-QW; 36415; 71045-TC-FY; 80048; 80053; 82803; 82962; 83605; 83880; 84100; 84443; 84484; 85025; 85027; 85610; 85730; 86803; 86850; 86900; 86901; 87340; 93005; 93010; 93970-TC; 94761; 97116-GP; 97161-GP; 99285-25; P9047

== ENCOUNTER 2022-07-09 05:29 | Day surgery (SDC) | payer OTHER ==
[2022-07-07 10:35] VITALS: BMI 27.8
[2022-07-09] MEDS ORDERED: LIDOCAINE HCL 1%, 10 MG/ML (10ML VIAL) MDV ONE (07:32)
[2022-07-09] MEDS ORDERED: HEPARIN NA (PORCINE) 5,000 UNITS/ML 1ML VIAL ONE (07:32)
[2022-07-09] MEDS ORDERED: PROPOFOL 20 ML ONE (07:49)
[2022-07-09] MEDS ORDERED: DEXMEDETOMIDINE HCL 200 MCG/2 ML IVPB ONE (07:52)
[2022-07-09] MEDS ORDERED: MIDAZOLAM HCL 2 MG/2 ML SINGLE DOSE VIAL ONE (09:02)
[2022-07-09] MEDS ORDERED: LIDOCAINE HCL 1%, 10 MG/ML (20ML VIAL) INF ONE ×2 (09:18)
[2022-07-09 11:19] VITALS: BP 106/46; PULSE 108; RESP 20; TEMP 97
== END 2022-07-09 11:45 | disposition home or self-care (01) ==
LOC: JASU-SURG 05:29
PROVIDERS: ATTEND Surgery Vascular Surgery
PROC: 057F3ZZ Dilation of Left Cephalic Vein, Percutaneous Approach (ICD-10-PCS; principal; 2022-07-09 09:00)
DX: T82.858A Stenosis of other vascular prosthetic devices, implants and grafts, initial encounter (principal); I12.0 Hypertensive chronic kidney disease with stage 5 chronic kidney disease or end stage renal disease; N18.6 End stage renal disease; E11.22 Type 2 diabetes mellitus with diabetic chronic kidney disease; Z79.4 Long term (current) use of insulin; Z99.2 Dependence on renal dialysis
CPT/HCPCS: 76000-TC-FY; 82962; 94760; J1644

== ENCOUNTER → 2022-07-16 | Day surgery (SDC) | payer OTHER | END | disposition home or self-care (01) | LOC: JRADIR 08:59 | PROVIDERS: ATTEND Internal Medicine Hematology & Oncology | PROC: 0W9G3ZZ Drainage of Peritoneal Cavity, Percutaneous Approach (ICD-10-PCS; principal; 2022-07-16) | DX: R18.8 Other ascites (principal) | CPT/HCPCS: 49083; 76942-TC ==